=== PATIENT | male | born 1965 | race Two or more races ===

== ENCOUNTER → 2018-05-22 | Outpatient (CLI) | payer OTHER, MEDICAID ==
[~2018-05-22] MED LIST: GADOBUTROL 10 MMOL/10 ML PFS ONE
== END | disposition home or self-care (01) ==
LOC: RAD 16:30
PROVIDERS: ATTEND Registered Nurse
DX: M48.061 Spinal stenosis, lumbar region without neurogenic claudication (principal); Q76.49 Other congenital malformations of spine, not associated with scoliosis; M54.16 Radiculopathy, lumbar region
CPT/HCPCS: 72158; A9585